=== PATIENT | male | born 1975 | race Hispanic/Latino ===

== ENCOUNTER 2025-01-22 15:53 | Inpatient (IN) | payer SELFPAY ==
[2025-01-22 16:40] LABS: #Basophils 0.08 10x3/uL (0.0-0.2); #Eosinophils 0.33 10x3/uL (0.0-0.5); #Monocytes 0.77 10x3/uL (0.0-1.1); #Neutrophils 5.72 10x3/uL (1.5-8.4); %Basophils 0.9 % (0.0-2.0); %Eosinophils 3.9 % (0.0-6.0); %Lymphocytes 18.3 % (18.0-47.0); %Monocytes 9.1 % (0.0-10.0); %Neutrophils 67.3 % (40.0-75.0); Hematocrit 43.4 % (38.8-50.0); Hemoglobin 15.9 g/dL (13.5-17.5); Mean Corpuscular Hemoglobin 33.3 pg (27.0-33.0); Mean Corpuscular Volume 90.8 fL (81.2-95.1); Platelet Count 169 10x3/uL (150-450); Red Blood Cell (RBC) Count 4.78 10x6/uL (4.32-5.72); White Blood Cell (WBC) Count 8.49 10x3/uL (3.5-10.5)
[2025-01-22 16:59] LABS: ALT (SGPT) 32 U/L (Less than 45); AST (SGOT) 34 U/L (11-34); Albumin 4.6 g/dL (3.1-4.5); Alkaline Phosphatase 59 U/L (40-110); Anion Gap 16 mmol/L (10-20); BUN (Urea Nitrogen) 25 mg/dL (8.4-25.7); Bilirubin, Total 1.0 mg/dL (0.3-1.2); Calc. Creatinine Clearance 0 mL/min (70-130); Calcium 9.2 mg/dL (7.8-10.44); Carbon Dioxide 21 mmol/L (22-29); Chloride 105 mmol/L (98-107); Globulin 2.4 g/dL (2.4-3.5); Glucose 126 mg/dL (70-105); Potassium 3.9 mmol/L (3.5-5.1); Sodium 138 mmol/L (136-145)
[2025-01-22 17:05] LABS: Troponin I 0.020 ng/mL (< 0.028)
[2025-01-22 17:10] LABS: INR-International Normal Ratio 1.0; Prothrombin Time 11.1 sec (9.5-12.1)
[2025-01-22 17:44] LABS: PTT 23.4 sec (22.0-33.0)
[2025-01-22] MEDS ORDERED: hydrALAZINE 20 MG/ML VIAL SLOW IVP PRN (17:54)
[2025-01-22] MEDS ORDERED: Melatonin 3 MG TAB PO PRN (17:54)
[2025-01-22] MEDS ORDERED: Senokot S 8.6-50 MG TAB PO PRN (17:54)
[2025-01-22] MEDS ORDERED: Ondansetron PF 4 MG/2 ML Vial IVP PRN (17:54)
[2025-01-22] MEDS ORDERED: Aspirin 325 MG TAB ONE (18:11)
[2025-01-22] MEDS ORDERED: Ciprofloxacin 0.2% Otic (0.25ML CONTAINER) R EAR SCH ×2 (19:45→20:00)
[2025-01-23 03:10] LABS: #Basophils 0.06 10x3/uL (0.0-0.2); #Eosinophils 0.32 10x3/uL (0.0-0.5); #Monocytes 0.80 10x3/uL (0.0-1.1); #Neutrophils 4.07 10x3/uL (1.5-8.4); %Basophils 0.8 % (0.0-2.0); %Eosinophils 4.4 % (0.0-6.0); %Lymphocytes 27.8 % (18.0-47.0); %Monocytes 11.0 % (0.0-10.0); %Neutrophils 55.7 % (40.0-75.0); Hematocrit 43.7 % (38.8-50.0); Hemoglobin 15.6 g/dL (13.5-17.5); Mean Corpuscular Hemoglobin 33.1 pg (27.0-33.0); Mean Corpuscular Volume 92.6 fL (81.2-95.1); Platelet Count 166 10x3/uL (150-450); Red Blood Cell (RBC) Count 4.72 10x6/uL (4.32-5.72); White Blood Cell (WBC) Count 7.30 10x3/uL (3.5-10.5)
[2025-01-23 03:44] LABS: Anion Gap 11 mmol/L (10-20); BUN (Urea Nitrogen) 19 mg/dL (8.4-25.7); Calc. Creatinine Clearance 0 mL/min (70-130); Calcium 8.8 mg/dL (7.8-10.44); Carbon Dioxide 21 mmol/L (22-29); Cardiac Risk 4.2 (Less than 4.5); Chloride 110 mmol/L (98-107); Cholesterol 180 mg/dl (< 200 Desired); Glucose 104 mg/dL (70-105); HDL Cholesterol 43 mg/dL (>60 Neg Risk); LDL Cholesterol, Calculated 124 mg/dL; Potassium 4.1 mmol/L (3.5-5.1); Sodium 138 mmol/L (136-145); Triglycerides 63 mg/dL (Less than 150)
[2025-01-23] MEDS ORDERED: Aspirin Chewable 81 MG TAB ONE (09:21)
[2025-01-23] MEDS: Aspirin 81 mg Enteric Coated Tablet PO SCH (09:29)
[2025-01-23] MEDS: Ciprofloxacin 0.2% Otic (0.25ML CONTAINER) R EAR SCH (09:29)
[2025-01-23] MEDS: Enoxaparin 40 MG (0.4 mL) SYRINGE SC SCH (09:29)
[2025-01-23] MEDS ORDERED: Acetaminophen 325 MG TAB ONE (16:54)
[2025-01-23] MEDS: Acetaminophen 325 MG TAB PO PRN (16:57)
[2025-01-24 01:28] VITALS: BMI 25.7
[2025-01-24 04:32] LABS: #Basophils 0.06 10x3/uL (0.0-0.2); #Eosinophils 0.41 10x3/uL (0.0-0.5); #Monocytes 0.67 10x3/uL (0.0-1.1); #Neutrophils 2.81 10x3/uL (1.5-8.4); %Basophils 1.0 % (0.0-2.0); %Eosinophils 6.9 % (0.0-6.0); %Lymphocytes 33.8 % (18.0-47.0); %Monocytes 11.2 % (0.0-10.0); %Neutrophils 46.9 % (40.0-75.0); Hematocrit 42.8 % (38.8-50.0); Hemoglobin 15.2 g/dL (13.5-17.5); Mean Corpuscular Hemoglobin 32.9 pg (27.0-33.0); Mean Corpuscular Volume 92.6 fL (81.2-95.1); Platelet Count 149 10x3/uL (150-450); Red Blood Cell (RBC) Count 4.62 10x6/uL (4.32-5.72); White Blood Cell (WBC) Count 5.98 10x3/uL (3.5-10.5)
[2025-01-24 04:38] LABS: ALT (SGPT) 22 U/L (Less than 45); AST (SGOT) 22 U/L (11-34); Albumin 3.8 g/dL (3.1-4.5); Alkaline Phosphatase 53 U/L (40-110); Anion Gap 11 mmol/L (10-20); BUN (Urea Nitrogen) 17 mg/dL (8.4-25.7); Bilirubin, Total 0.5 mg/dL (0.3-1.2); Calc. Creatinine Clearance 110 mL/min (70-130); Calcium 8.6 mg/dL (7.8-10.44); Carbon Dioxide 21 mmol/L (22-29); Chloride 109 mmol/L (98-107); Globulin 2.5 g/dL (2.4-3.5); Glucose 99 mg/dL (70-105); Potassium 4.2 mmol/L (3.5-5.1); Sodium 137 mmol/L (136-145)
[2025-01-24 12:22] VITALS: BP 154/94; TEMP 99.3
== END 2025-01-24 14:02 | disposition home or self-care (01) | DRG 69 ==
LOC: CSHERS 15:53 → CSHERHOLD 17:45 → OBSVTOIN 01-23 09:25 → CSHTELE 01-23 18:19
PROVIDERS: ADMIT Family Medicine; ATTEND Internal Medicine
DX: G45.9 Transient cerebral ischemic attack, unspecified (principal); I10 Essential (primary) hypertension; E78.5 Hyperlipidemia, unspecified; H60.91 Unspecified otitis externa, right ear; Z79.82 Long term (current) use of aspirin; Z79.899 Other long term (current) drug therapy
CPT/HCPCS: 36415; 70450; 70496; 70498; 70551; 80048; 80053; 80061; 84443; 84484; 85025; 85610; 85730; 93005; 93306; 94760; 94762; J1650